=== PATIENT | male | born 1995 | race Hispanic/Latino ===

== ENCOUNTER 2017-09-02 22:16 | Emergency (ER) | payer SELFPAY ==
--- NOTE | 2017-09-02 22:59 | RAD ---
TWO VIEWS OF THE RIGHT TIBIA AND FIBULA 09/02/17 HISTORY: Puncture wound to the right lower leg. FINDINGS: Two views of the right tibia/fibula shows no evidence of acute fracture or dislocation. Mild diffuse soft tissue swelling is seen. No radiopaque foreign body is present. IMPRESSION: No evidence of acute osseous abnormality. POS: [facility]
[2017-09-02] MEDS ORDERED: Ibuprofen 800 MG TAB ONE (23:08)
[2017-09-02] MEDS ORDERED: HYDROcodone/Acetaminophen 5/325 mg Tablet ONE (23:08)
== END 2017-09-02 23:15 | disposition home or self-care (01) ==
LOC: NAV ERS 22:16
DX: S81.831A Puncture wound without foreign body, right lower leg, initial encounter (principal); F17.210 Nicotine dependence, cigarettes, uncomplicated; W26.8XXA Contact with other sharp object(s), not elsewhere classified, initial encounter